=== PATIENT | male | born 1980 | race Caucasian/White ===

== ENCOUNTER → 2023-01-31 | Outpatient (CLI) | payer SELFPAY ==
--- NOTE | 2023-01-31 06:59 | ECHOD_ITS ---
Reason For Study: PALPITATIONS Procedure This was a 2D Doppler, Color Flow transthoracic echocardiogram. Exam performed in department. Left Ventricle Normal size and thickness. The left ventricular ejection fraction is 60 %. Normal diastology for age. Right Ventricle Normal RV size. Normal systolic function. Atria The left atrium is mildly enlarged. Normal right atrium. Mitral Valve Trivial mitral valve insufficiency. Tricuspid Valve Normal tricuspid valve. Aortic Valve Normal aortic valve. Pulmonic Valve The pulmonic valve is not well visualized. Great Vessels Normal sized aortic root. Pericardium/Pleural No pericardial effusion. MMode/2D Measurements & Calculations LVIDd: 4.6 cm IVSd: 1.0 cm Ao root diam: 3.1 cm LVIDs: 3.1 cm LVPWd: 0.98 cm RVDd: 4.0 cm FS: 31.9 % LAV(MOD-bp): 35.4 ml LVAd ap4: 34.1 cm2 SV(MOD-sp4): 75.0 ml LAV(MOD-bp) Indexed: 14.8 ml/m2 LVLd ap4: 8.4 cm LAV(MOD-sp2): 35.0 ml EDV(MOD-sp4): 114.4 ml LAV(MOD-sp4): 34.3 ml EDV(sp4-el): 117.2 ml LVAs ap4: 17.7 cm2 LVLs ap4: 6.8 cm ESV(MOD-sp4): 39.4 ml ESV(sp4-el): 38.9 ml EF(MOD-sp4): 65.6 % EF(sp4-el): 66.8 % SV(sp4-el): 78.3 ml LA A4 area: 15.0 cm2 LA dimension(2D): 3.8 cm RA A4 area: 13.0 cm2 Time Measurements MV dec time: 0.22 sec Doppler Measurements & Calculations MV E max demetrio: 101.1 cm/sec Lat Peak E' Demetrio: 16.4 cm/sec Med Peak E' Demetrio: 15.3 cm/sec MV A max demetrio: 87.5 cm/sec E/E' lat: 6.2 E/E' med: 6.6 MV E/A: 1.2 Ao V2 max: 149.7 cm/sec LV V1 max: 131.3 cm/sec PA V2 max: 120.6 cm/sec Ao max P.0 mmHg LV V1 max P.9 mmHg ECHO/Echo Complete Interpretation Summary The left ventricular ejection fraction is 60 %. The left atrium is mildly enlarged. Ordering Physician: Ivy Spaulding Referring Physician: Ivy Spaulding Performed By: Ina Caballero RDCS
== END | disposition home or self-care (01) ==
PROVIDERS: Referring Provider Internal Medicine Cardiovascular Disease; Visit Provider Internal Medicine Cardiovascular Disease
DX: R94.31 Abnormal electrocardiogram [ECG] [EKG] (principal); I48.0 Paroxysmal atrial fibrillation; I10 Essential (primary) hypertension
CPT/HCPCS: 78452; 93017; 93306; A9500; A4216

== ENCOUNTER → 2023-03-07 | Outpatient (CLI) | payer SELFPAY ==
--- NOTE | 2023-03-07 07:46 | CT_ITS ---
STUDY: CT CHEST WITH CONTRAST REASON FOR EXAM: Male, 42 years old. SOB. Cardiac over read examination. RADIATION DOSAGE (If Supplied By Facility): CTDIvol = ( 23.79 ) mGy, DLP = ( 1434.52 ) mGycm TECHNIQUE: Transaxial imaging was performed with the administration of 75 mL of Isovue-370 intravenous contrast material. Individualized dose optimization techniques were used for this CT. COMPARISON: No relevant priors. FINDINGS: CHEST The lungs are normal. There is no demonstrated pleural abnormality. Normal heart and pericardium. No significant coronary artery calcification is seen. There are small lymph nodes within the mediastinum, which are normal in size and morphology most compatible with reactive lymph hyperplasia. Normal hilar regions. Normal unenhanced pulmonary arteries. Normal aorta arch and descending thoracic aorta. Normal osseous structures. There is no demonstrated abnormality of the visualized upper abdomen. CT/Limited Chest CT Cardiac Only IMPRESSION: No significant coronary artery calcification is seen. Electronically Signed: Isai Burnett MD at 16:14 EDT ,
[2023-03-07 07:50] VITALS: BP 155/84; PULSE 70; RESP 14; O2SAT 99; BMI 31.4
[2023-03-07 08:06] VITALS: BP 155/84; PULSE 75
[2023-03-07] MEDS: Nitroglycerin SL (ED/IMG/CATH) 0.4 MG TABLET SL (08:06)
[2023-03-07 08:13] VITALS: BP 137/85; PULSE 66; RESP 14; O2SAT 99
--- NOTE | 2023-03-18 16:46 | CCTA.WCONT ---
CCTA w/Cont Coronary Arteries Date of Study:: 03/07/23 Palpitations Coronary Calcium Scoring: High-resolution Computed Tomographic imaging of the chest was performed on [03/07/23 ], with particular attention paid to the coronary arteries. Intravenous contrast agent was administered per protocol and images reconstructed and displayed. LEFT MAIN CORONARY ARTERY:Normal [] LEFT ANTERIOR DESCENDING CORONARY ARTERY: No significant atherosclerotic plaquing noted [] LEFT CIRCUMFLEX CORONARY ARTERY: No significant obstruction noted [] RIGHT CORONARY ARTERY: No significant stenosis present. Conclusion: No significant atherosclerotic stenosis noted.
== END | disposition home or self-care (01) ==
PROVIDERS: Referring Provider Nurse Practitioner Family; Visit Provider Nurse Practitioner Family
DX: I48.0 Paroxysmal atrial fibrillation (principal); I10 Essential (primary) hypertension; R94.39 Abnormal result of other cardiovascular function study; R06.02 Shortness of breath; R00.2 Palpitations
CPT/HCPCS: 75574; 76380; Q9967